=== PATIENT | female | born 1995 | race African-American/Black ===

== ENCOUNTER 2017-06-20 21:23 | Emergency (ER) | payer BC ==
[2017-06-20 21:26] VITALS: BP 139/85; PULSE 59; RESP 16; TEMP 98.7; O2SAT 99
[2017-06-20] MEDS ORDERED: IBUPROFEN 800 MG TAB PO ONE (22:30)
--- NOTE | 2017-06-20 22:39 | PD ---
HPI Chief Complaint: Facial Pain or Swelling Time Seen by Provider: 22:17 Travel History International Travel<30 days: No Contact w/Intl Traveler<30days: No Traveled to known affect area: No History of Present Illness HPI 22-year-old white female presents to emergency department for evaluation of a facial trauma. She states that she was batting playing softball when she was struck in the face with a softball. She denies syncope. Positive facial bleeding but no epistaxis. No dental injury. No syncope. No neck or back pain. No numbness, tingling or weakness. No visual changes. Symptoms are mild -to-moderate. PFSH Past Medical History Anemia: Yes Asthma: Yes Tetanus Vaccination: < 5 Years ?: Not Past Surgical History Other Surgery: Yes (SHOULDER SURGERY LAST FEBRUARY ) Social History Alcohol Use: No Tobacco Use: No Substance Use: No Allergies-Medications (Allergen,Severity, Reaction): Coded Allergies: No Known Allergies (Unverified , 06/20/17) Reported Meds & Prescriptions Reported Meds & Active Scripts Active Diclofenac Sodium DR (Diclofenac Sodium) 75 Mg Tabdr 75 Mg PO BID Review of Systems Except as stated in HPI: all other systems reviewed are Neg Physical Exam Narrative GENERAL: Well-developed, well-nourished in no apparent distress. Nontoxic appearing. HEAD: Patient has tenderness and swelling to the left nasal bridge with superficial abrasions EYES: Pupils equal round and reactive. Extraocular motions intact. No scleral icterus. No injection or drainage. ENT: Nose with edema of the turbinates. No septal hematoma or deviation. Throat without erythema, tonsillar hypertrophy or exudate. Uvula midline. Airway patent. NECK: Trachea midline. Supple, nontender, moves head freely. No central bony tenderness or spasm. CARDIOVASCULAR: Regular rate and rhythm without murmurs, gallops, or rubs. RESPIRATORY: Clear to auscultation. Breath sounds equal bilaterally. No wheezes , rales, or rhonchi. GASTROINTESTINAL: Abdomen soft, non-tender, nondistended. No hepato-splenomegaly , or palpable masses. No guarding. EXTREMITIES: No clubbing, cyanosis, or edema. No joint tenderness. BACK: Nontender without deformity. No flank tenderness. NEUROLOGICAL: Awake, alert and oriented x 3 .Cranial nerves grossly intact. Motor and sensory grossly within normal limits. Normal speech. Data Data Last Documented VS Vital Signs Date Time Temp Pulse Resp B/P (MAP) Pulse Ox O2 Delivery O2 Flow Rate FiO2 06/20/17 21:26 98.7 59 16 139/85 (103) 99 Room Air Orders Orders Facial Bones - Ltd (<3vws) (06/20/17 22:20) Ibuprofen (Motrin) (06/20/17 22:30) Ice/Cold Pack (06/20/17 22:20) Ed Discharge Order (06/20/17 22:42) MDM Medical Decision Making Medical Screen Exam Complete: Yes Emergency Medical Condition: Yes Medical Record Reviewed: Yes Interpretation(s) Nasal bones: Negative for acute fracture. Differential Diagnosis MDM: High Differential diagnoses: Fracture, sprain, strain, dislocation, contusion, neurovascular injury Narrative Course Patient's given ice pack, Motrin, x-rays of the nasal bones Diagnosis Primary Impression: Facial contusion Qualified Codes: S00.83XA - Contusion of other part of head, initial encounter Patient Instructions: General Instructions Additional Instructions: Rest. Ice. Local wound care with soap, water, Neosporin. Medications as directed. Recheck with the clinic at school in the next few days. Return to the ER if any problems. No softball 1 week. Med/Other Pt SpecificInfo: Prescription(s) given, Wound Care Scripts Diclofenac Sodium DR (Diclofenac Sodium DR) 75 Mg Tabdr 75 MG PO BID, #20 TAB 0 Refills Prov: Romina Nunez 06/20/17 Disposition: 01 DISCHARGE HOME Condition: Stable Matt Anderson Jun 20, 2017 22:39
[2017-06-20] MEDS ORDERED: DICL75TA PO (22:43)
--- NOTE | 2017-06-20 22:46 | RADRPT ---
EXAM DATE/TIME: 06/20/2017 22:27 [facility] COMPARISON: No previous studies available for comparison. INDICATIONS : Facial pain, abrasion. Hit with softball MEDICAL HISTORY : None. SURGICAL HISTORY : None. ENCOUNTER: Initial ACUITY: 1 day PAIN SCORE: 5/10 LOCATION: Left Facial bones FINDINGS: Two view examination of the facial bones demonstrates no gross evidence of fracture. No radiopaque f oreign bodies are seen. CONCLUSION: Unremarkable limited examination of the facial bones. Surinder Trejo MD on June 20, 2017 at 22:44 Board Certified Radiologist. This report was verified electronically.
== END 2017-06-20 23:02 | disposition home or self-care (01) ==
LOC: NEPK 21:23
DX: S00.83XA Contusion of other part of head, initial encounter (principal); D64.9 Anemia, unspecified; J45.909 Unspecified asthma, uncomplicated; W21.07XA Struck by softball, initial encounter; Y93.64 Activity, baseball
CPT/HCPCS: 70140; 99284